=== PATIENT | female | born 1940 | race Caucasian/White ===

== ENCOUNTER 2020-03-08 19:03 | Inpatient (IN) | payer OTHER ==
[~2020-03-08] VITALS: Ht 162.6 cm; Wt 122.6 kg
[2020-03-08 19:55] LABS: Basophils # (auto) 0 10 ^3/uL (0-0.2); Basophils % (auto) 0.2 % (0.0-2.0); Eosinophils # (auto) 0 10 ^3/uL (0-0.8); Eosinophils % (auto) 0.1 % (0.0-7.0); Hematocrit 49.4 % (36.0-46.0); Hemoglobin 16.3 g/dL (12.2-16.2); Lymphocytes # (auto) 0.5 10 ^3/uL (0.4-5.4); Lymphocytes % (auto) 3.6 % (10.0-50.0); Mean Corpuscular Hemoglobin 31.2 pg (28.0-32.0); Mean Corpuscular Volume 94.3 fL (80.0-100.0); Monocytes # (auto) 0.9 10 ^3/uL (0-1.3); Monocytes % (auto) 7.2 % (0.0-12.0); Neutrophils # (auto) 11.4 10 ^3/uL (1.6-8.6); Neutrophils % (auto) 88.9 % (37.0-80.0); Platelet Count (auto) 229 10^3/uL (140-450); Red Blood Cells 5.24 10^6/uL (4.0-5.20); Red Cell Distribution Width 15.7 % (11.8-14.3); White Blood Cell 12.9 10^3/uL (4.4-10.8)
[2020-03-08] MEDS ORDERED: SODIUM CHLORIDE 0.9% 1,000 ML IV ONE (20:00)
[2020-03-08 20:09] LABS: Albumin 3.4 g/dL (3.4-5.0); Anion Gap 7 (5-15); BUN/Creatinine Ratio 13.7; Blood Urea Nitrogen 14 mg/dL (7-18); Calcium 8.1 mg/dL (8.5-10.1); Carbon Dioxide 26 mmol/L (21-32); Chloride 107 mmol/L (98-107); GFR African American 67 mL/min; GFR Non-African American 56 mL/min; Glucose 143 mg/dL (74-106); Potassium 3.7 mmol/L (3.5-5.1); Sodium 140 mmol/L (136-145)
[2020-03-08 20:14] LABS: Alanine Aminotransferase 113 U/L (13-56); Alkaline Phosphatase 179 U/L (45-117); Aspartate Aminotransferase 124 U/L (15-37); Bilirubin, Total 1.6 mg/dL (0.2-1.0); Total Protein 7.4 g/dL (6.4-8.2)
[2020-03-08] MEDS ORDERED: ASPirin 81 mg TAB PO ONE (20:15)
[2020-03-08] MEDS ORDERED: MORPHINE SULF INJ 2 MG/ML SYRINGE 1ML IV ONE (20:45)
[2020-03-08] MEDS ORDERED: ONDANSETRON HCL 4 MG/2 ML VIAL IV ONE (20:45)
[2020-03-08 20:48] LABS: INR 0.99 (0.9-1.15); Partial Thromboplastin Time 34.9 sec (23.64-32.05)
[2020-03-08] MEDS ORDERED: ONDANSETRON HCL 4 MG/2 ML VIAL IV PRN (21:45)
[2020-03-08] MEDS ORDERED: METOPROLOL TARTRATE 1MG/1ML-5ML VIAL IV PRN (21:45)
[2020-03-08] MEDS ORDERED: DEXTROSE (50%) 50ML SYRG IV PRN (21:45)
[2020-03-08] MEDS ORDERED: NITROGLYCERIN 0.4 MG SL TAB SL PRN (21:45)
[2020-03-08] MEDS ORDERED: MORPHINE SULF INJ 2 MG/ML SYRINGE 1ML IV PRN (21:45)
[2020-03-08] MEDS: CARVEDILOL 3.125 MG TAB PO SCH (22:00)
[2020-03-08] MEDS ORDERED: ENOXAPARIN SOD 100 MG/1 ML SYRINGE SC SCH (22:00)
[2020-03-08] MEDS: ATORVASTATIN 20 MG TAB PO SCH (22:39)
[2020-03-08] MEDS: cefTRIAXone 1GM/50ML D5W 50 ML IV SCH (22:40)
[2020-03-09] MEDS: metroNIDAZOLE 500MG/100ML 100 ML IV SCH ×4 (00:51→18:29)
[2020-03-09] MEDS ORDERED: SODIUM CHLORIDE 0.9% 1,000 ML IV ONE (01:15)
[2020-03-09] MEDS: ACCU-CHEK COMFORT CURVE STRIP VI SCH ×6 (04:00→20:00)
[2020-03-09] MEDS: InsuLIN REG 1unit/0.01ml Soln (100units/ml) SC SCH ×6 (04:00→20:00)
[2020-03-09 06:38] LABS: Basophils # (auto) 0 10 ^3/uL (0-0.2); Basophils % (auto) 0.3 % (0.0-2.0); Eosinophils # (auto) 0 10 ^3/uL (0-0.8); Eosinophils % (auto) 0.2 % (0.0-7.0); Hematocrit 38.9 % (36.0-46.0); Hemoglobin 13.1 g/dL (12.2-16.2); Lymphocytes # (auto) 0.5 10 ^3/uL (0.4-5.4); Lymphocytes % (auto) 5.5 % (10.0-50.0); Mean Corpuscular Hemoglobin 31.9 pg (28.0-32.0); Mean Corpuscular Hgb Conc. 33.7 g/dL (32.0-36.0); Mean Corpuscular Volume 94.7 fL (80.0-100.0); Monocytes # (auto) 0.9 10 ^3/uL (0-1.3); Monocytes % (auto) 10.3 % (0.0-12.0); Neutrophils # (auto) 7.7 10 ^3/uL (1.6-8.6); Neutrophils % (auto) 83.7 % (37.0-80.0); Platelet Count (auto) 170 10^3/uL (140-450); Red Blood Cells 4.11 10^6/uL (4.0-5.20); Red Cell Distribution Width 15.5 % (11.8-14.3); White Blood Cell 9.2 10^3/uL (4.4-10.8)
[2020-03-09 06:54] LABS: BUN/Creatinine Ratio 19.5; Potassium 3.7 mmol/L (3.5-5.1)
[2020-03-09 09:00] VITALS: BP 129/66
--- NOTE | 2020-03-09 09:10 | NUR ---
Telemetry admit from ER JONAS MERAZ admitted to Telemetry unit after SBAR received. Patient oriented to primary RN, unit, room, bed, and unit policies regarding patient care and visiting hours. Patient now on continuous telemetry monitoring, tele box # [id number] and telemetry reading on arrival to unit is SR. Patient placed on bedside oxygen, weighed by bedscale and encouraged to call if they need something. All questions and concerns addressed, patient verbalized understanding.
[2020-03-09] MEDS: CLOPIDOGREL BISULFATE 75 MG TAB PO SCH (10:00)
[2020-03-09] MEDS: DOCUSATE SOD 100 MG CAP PO SCH (10:00)
[2020-03-09] MEDS: ENOXAPARIN SOD 100 MG/1 ML SYRINGE SC SCH ×2 (10:00→22:54)
[2020-03-09] MEDS: LISINOPRIL 10 MG TAB PO SCH (10:17)
[2020-03-09] MEDS: ASPirin 81 mg TAB PO SCH (10:17)
[2020-03-09] MEDS: cefTRIAXone 1GM/50ML D5W 50 ML IV SCH (10:18)
[2020-03-09] MEDS: CARVEDILOL 3.125 MG TAB PO SCH ×2 (10:18→22:00)
[2020-03-09 10:40] VITALS: BP 129/66
[2020-03-09] MEDS ORDERED: METOPROLOL TARTRATE 25 MG TAB PO ONE ×2 (11:30→17:45)
[2020-03-09] MEDS ORDERED: IOHEXOL 350 MG/ML 100ML IJ ONE (12:24)
[2020-03-09 13:00] VITALS: BP 91/54
[2020-03-09] MEDS ORDERED: CITA-36 PO (16:45)
[2020-03-09] MEDS ORDERED: ATOR80TA PO (16:45)
[2020-03-09] MEDS ORDERED: LISI-646 PO (16:45)
--- NOTE | 2020-03-09 16:50 | NUR ---
Decreased heart rate Received call from [place] regarding patient's decreased heart rate in the 40's. Now at 48. Patient checked, she is asleep and asymptomatic.
[2020-03-09 17:00] VITALS: BP 129/62
--- NOTE | 2020-03-09 17:28 | NUR ---
Run of V-Fib Phone call received from [place] regarding patient's run of V-Fib. Automotive Electrician (Annel Mcguire) paged and orders received. She was notified on patient's decreased heart rate previously but now 73. Telephone order to administer the metoprolol which was previously held due to decreased HR.
[2020-03-09] MEDS ORDERED: AMIODARONE HCL 200 MG TAB PO ONE (17:45)
--- NOTE | 2020-03-09 19:10 | NUR ---
Opening Shift Note Assumed care of patient, awake, alert and oriented x4, on 2L of oxygen via NC with even and unlabored respirations, no S/S of distress/SOB or pain. Patient able to turn independently, bed in lowest locked position, side rails up x2, and call light within reach. Instructed on POC and to call for assist PRN, will continue to monitor for changes Q1hr and PRN.
[2020-03-09 22:00] VITALS: BP 124/61
[2020-03-09] MEDS: METOPROLOL TARTRATE 25 MG TAB PO SCH (22:00)
[2020-03-09] MEDS: MAGNESIUM OXIDE 400 MG TAB PO SCH (22:53)
[2020-03-09] MEDS: AMIODARONE HCL 200 MG TAB PO SCH (22:53)
[2020-03-09] MEDS: ATORVASTATIN 20 MG TAB PO SCH (22:53)
[2020-03-10] MEDS: metroNIDAZOLE 500MG/100ML 100 ML IV SCH ×4 (00:35→17:41)
[2020-03-10] MEDS: ACCU-CHEK COMFORT CURVE STRIP VI SCH ×6 (04:00→20:00)
[2020-03-10] MEDS: InsuLIN REG 1unit/0.01ml Soln (100units/ml) SC SCH ×6 (04:00→20:00)
[2020-03-10 05:30] VITALS: BP 134/71
[2020-03-10 06:09] LABS: Basophils # (auto) 0.1 10 ^3/uL (0-0.2); Basophils % (auto) 0.8 % (0.0-2.0); Eosinophils # (auto) 0.2 10 ^3/uL (0-0.8); Eosinophils % (auto) 2.4 % (0.0-7.0); Hematocrit 38.3 % (36.0-46.0); Hemoglobin 12.6 g/dL (12.2-16.2); Lymphocytes % (auto) 15.7 % (10.0-50.0); Mean Corpuscular Hemoglobin 31.6 pg (28.0-32.0); Mean Corpuscular Hgb Conc. 32.9 g/dL (32.0-36.0); Mean Corpuscular Volume 96.1 fL (80.0-100.0); Monocytes # (auto) 0.9 10 ^3/uL (0-1.3); Monocytes % (auto) 13.8 % (0.0-12.0); Neutrophils # (auto) 4.2 10 ^3/uL (1.6-8.6); Neutrophils % (auto) 67.3 % (37.0-80.0); Nucleated Red Blood Cells % 0.1 %; Platelet Count (auto) 166 10^3/uL (140-450); Red Blood Cells 3.98 10^6/uL (4.0-5.20); Red Cell Distribution Width 15.5 % (11.8-14.3); White Blood Cell 6.3 10^3/uL (4.4-10.8)
[2020-03-10 06:20] LABS: Albumin 2.4 g/dL (3.4-5.0); Calcium 7.5 mg/dL (8.5-10.1); Magnesium 2.4 mg/dL (1.6-2.6); Potassium 3.6 mmol/L (3.5-5.1)
[2020-03-10 06:23] LABS: BUN/Creatinine Ratio 21.4; Bilirubin, Total 0.7 mg/dL (0.2-1.0); Total Protein 5.9 g/dL (6.4-8.2)
--- NOTE | 2020-03-10 07:45 | NUR ---
Opening Shift Note Assumed care of patient, asleep but easily aroused. No S/S of distress/SOB or pain. Will follow up with instructions on POC and to call for assist PRN, will continue to monitor for changes Q1hr and PRN.
[2020-03-10 08:00] VITALS: BP 128/75
[2020-03-10] MEDS ORDERED: ADENOSINE 109 MG in GIVE UN-DILUTED 0 ML IV STA (08:01)
--- NOTE | 2020-03-10 09:00 | NUR ---
Off Unit for stress test
[2020-03-10 09:15] VITALS: BP 153/73
[2020-03-10] MEDS: CLOPIDOGREL BISULFATE 75 MG TAB PO SCH (10:00)
[2020-03-10] MEDS: DOCUSATE SOD 100 MG CAP PO SCH (10:00)
[2020-03-10] MEDS: CARVEDILOL 3.125 MG TAB PO SCH (10:00)
[2020-03-10] MEDS: METOPROLOL TARTRATE 25 MG TAB PO SCH ×2 (10:00→21:43)
--- NOTE | 2020-03-10 10:25 | NUR ---
On Unit Patient returned to unit after having stress test done. Will follow up with result.
[2020-03-10] MEDS: cefTRIAXone 1GM/50ML D5W 50 ML IV SCH (10:47)
[2020-03-10] MEDS: ENOXAPARIN SOD 100 MG/1 ML SYRINGE SC SCH ×2 (10:47→21:44)
[2020-03-10] MEDS: ASPirin 81 mg TAB PO SCH (10:48)
[2020-03-10] MEDS: MAGNESIUM OXIDE 400 MG TAB PO SCH ×2 (10:48→21:44)
[2020-03-10] MEDS: AMIODARONE HCL 200 MG TAB PO SCH (10:53)
[2020-03-10] MEDS: LISINOPRIL 10 MG TAB PO SCH (10:55)
[2020-03-10 12:00] VITALS: BP 148/74
--- NOTE | 2020-03-10 16:05 | NUR ---
Cardiology Rounded Annel Mcguire on unit to see patient. Stated her stress test is positive. Will notify JAREN FERNANDO.
--- NOTE | 2020-03-10 16:10 | NUR ---
Paged Dr. Tafoya regarding patient's positive stress test.
--- NOTE | 2020-03-10 16:25 | NUR ---
GI Consult Dr. Tafoya returned call, he is aware of stress test result. ERCP is cancelled for 03/11. remote encoding operations supervisor and charge nurse was notified. remote encoding operations supervisor to notify OR staff. Patient is also aware.
[2020-03-10 16:59] VITALS: BP 124/71
[2020-03-10] MEDS: ATORVASTATIN 20 MG TAB PO SCH (21:43)
[2020-03-10 22:00] VITALS: BP 136/81
[2020-03-11] MEDS: ACCU-CHEK COMFORT CURVE STRIP VI SCH ×7 (04:00→22:53)
[2020-03-11] MEDS: InsuLIN REG 1unit/0.01ml Soln (100units/ml) SC SCH ×7 (04:00→22:53)
[2020-03-11 05:43] VITALS: BP 153/72
[2020-03-11] MEDS: metroNIDAZOLE 500MG/100ML 100 ML IV SCH ×5 (06:00→23:38)
[2020-03-11 06:16] LABS: Basophils # (auto) 0.1 10 ^3/uL (0-0.2); Eosinophils # (auto) 0.2 10 ^3/uL (0-0.8); Eosinophils % (auto) 3.1 % (0.0-7.0); Hemoglobin 13.1 g/dL (12.2-16.2); Lymphocytes % (auto) 18.8 % (10.0-50.0); Mean Corpuscular Hemoglobin 31.4 pg (28.0-32.0); Mean Corpuscular Hgb Conc. 32.8 g/dL (32.0-36.0); Mean Corpuscular Volume 95.9 fL (80.0-100.0); Monocytes # (auto) 0.6 10 ^3/uL (0-1.3); Neutrophils # (auto) 3.5 10 ^3/uL (1.6-8.6); Neutrophils % (auto) 65.1 % (37.0-80.0); Platelet Count (auto) 180 10^3/uL (140-450); Red Blood Cells 4.18 10^6/uL (4.0-5.20); Red Cell Distribution Width 15.3 % (11.8-14.3); White Blood Cell 5.3 10^3/uL (4.4-10.8)
[2020-03-11 06:31] LABS: INR 1.05 (0.9-1.15); Partial Thromboplastin Time 65.8 sec (23.64-32.05)
[2020-03-11 06:36] LABS: Albumin 2.7 g/dL (3.4-5.0); Magnesium 2.6 mg/dL (1.6-2.6); Potassium 3.7 mmol/L (3.5-5.1)
[2020-03-11 06:40] LABS: BUN/Creatinine Ratio 15.3; Bilirubin, Total 0.7 mg/dL (0.2-1.0); Total Protein 6.7 g/dL (6.4-8.2)
[2020-03-11 09:00] VITALS: BP 152/78
[2020-03-11] MEDS: cefTRIAXone 1GM/50ML D5W 50 ML IV SCH (09:26)
[2020-03-11] MEDS: DOCUSATE SOD 100 MG CAP PO SCH (09:26)
[2020-03-11] MEDS: ASPirin 81 mg TAB PO SCH (09:26)
[2020-03-11] MEDS: METOPROLOL TARTRATE 25 MG TAB PO SCH ×2 (09:27→16:15)
[2020-03-11] MEDS: MAGNESIUM OXIDE 400 MG TAB PO SCH ×2 (09:27→21:31)
[2020-03-11] MEDS: CLOPIDOGREL BISULFATE 75 MG TAB PO SCH (09:28)
[2020-03-11] MEDS: ENOXAPARIN SOD 100 MG/1 ML SYRINGE SC SCH ×2 (09:28→21:26)
[2020-03-11] MEDS: LISINOPRIL 10 MG TAB PO SCH (09:28)
[2020-03-11] MEDS: AMIODARONE HCL 200 MG TAB PO SCH (09:29)
--- NOTE | 2020-03-11 09:45 | NUR ---
PATIENT IN [facility]
--- NOTE | 2020-03-11 10:15 | NUR ---
HOLD P.T. TODAY. PT WENT DOWN TO [employer].
--- NOTE | 2020-03-11 12:18 | NUR ---
Nutrition Assessment Notes please see attached link for complete assessment Est Energy needs ABW 76 [id number] kcals (20-23kcal/kgBW), Est Protein needs: 76-83 gms/day (1.0-1.1 gm/kgBW). Will continue to monitor and reassess prn. Addendum: 03/11/20 at [address] Amended: Links added.
[2020-03-11] MEDS ORDERED: ANGIOMAX 250 MG VIAL IV ONE (13:56)
[2020-03-11] MEDS ORDERED: MIDAZOLAM HCL 1MG/1ML-2 ML VIAL ONE (13:56)
[2020-03-11] MEDS ORDERED: fentaNYL CITRATE 100 MCG/2 ML VL ONE (13:56)
[2020-03-11] MEDS ORDERED: SODIUM CHL 0.9% 0 ML ONE (13:57)
[2020-03-11] MEDS ORDERED: IOHEXOL 350 MG/ML 100ML IJ ONE (13:57)
[2020-03-11] MEDS ORDERED: LIDOCAINE 2%HCL (LOCAL ANESTH.) INJ 20ML MDV ONE (13:57)
[2020-03-11] MEDS ORDERED: VERAPAMIL 2.5MG/ML INJ 2ML VIAL IV ONE (13:58)
[2020-03-11] MEDS ORDERED: HEPARIN SODIUM (PORCINE) 5000 UNITS/ML 1ML VIAL ONE (13:58)
--- NOTE | 2020-03-11 16:30 | NUR ---
removed 2 ml of air from vasc band.
--- NOTE | 2020-03-11 16:32 | NUR ---
Fernandes catheter dc'd Order to discontinue fernandes catheter. Fernandes dc'd with clean technique following deflation of balloon. Patient tolerated well with no complaints of pain. Continue care. Addendum: 03/11/20 at 1724 by Anna Whitt RN WRONG PATIENT
--- NOTE | 2020-03-11 16:45 | NUR ---
Removed 2 ml of air from vasc band.
--- NOTE | 2020-03-11 17:15 | NUR ---
Removed 2 ml of air from vasc band.
--- NOTE | 2020-03-11 17:52 | NUR ---
Removed 2 ml of air from vasc band. placed tegaderm on patient
--- NOTE | 2020-03-11 20:00 | NUR ---
Opening Shift Note Assumed care of patient, awake and alert. No S/S of distress/SOB or pain. Instructed on POC and to call for assist PRN, will continue to monitor for changes Q1hr and PRN.
[2020-03-11] MEDS: ATORVASTATIN 20 MG TAB PO SCH (21:26)
[2020-03-11] MEDS: SODIUM CHLOR 0.9% PF (SALINE LOCK) 10ML VIAL/SYR IV SCH (21:30)
--- NOTE | 2020-03-11 21:59 | NUR ---
HOSPITALIST PREETI PATIENT'S BP ELEVATED. BP 165/72. HR IS 57. PATIENT DENIES ANY PAIN AT THIS TIME AND IS ASYMPTOMATIC. PATIENT DID NOT RECEIVED DAILY DOSE IN AM. REQUESTING PRN BP MEDICATION AT THIS TIME. WILL AWAIT CALL BACK OR ORDERS. Addendum: 03/11/20 at 2206 by HAILEY MILLER RN PATIENT IS OF DOCTOR THOMAS. [facility] OFFICE CONTACTED. VOICEMAIL LEFT
[2020-03-11 22:00] VITALS: BP 165/72
[2020-03-11] MEDS ORDERED: amLODIPine BESYLATE 5 MG TAB PO ONE (22:15)
[2020-03-11] MEDS ORDERED: hydrALAZINE HCL 20 MG/ML VL IV PRN (22:15)
[2020-03-12] MEDS: InsuLIN REG 1unit/0.01ml Soln (100units/ml) SC SCH ×3 (04:00→12:00)
[2020-03-12] MEDS: ACCU-CHEK COMFORT CURVE STRIP VI SCH ×3 (04:16→12:00)
[2020-03-12] MEDS: ACETAMINOPHEN 325 MG TAB PO PRN ×3 (04:17→23:43)
[2020-03-12 05:00] VITALS: BP 153/87
[2020-03-12] MEDS: SODIUM CHLOR 0.9% PF (SALINE LOCK) 10ML VIAL/SYR IV SCH ×3 (05:39→21:21)
[2020-03-12] MEDS: metroNIDAZOLE 500MG/100ML 100 ML IV SCH ×4 (05:39→23:43)
--- NOTE | 2020-03-12 07:30 | NUR ---
Opening Shift Note Assumed care of patient, awake, alert, and oriented. No S/S of distress/SOB or pain. Bed in lowest/locked position, bed rails up x2, call light within reach. Instructed on POC and to call for assist PRN. Will continue to monitor for changes Q1hr and PRN.
[2020-03-12 07:50] LABS: Basophils # (auto) 0.1 10 ^3/uL (0-0.2); Eosinophils # (auto) 0.2 10 ^3/uL (0-0.8); Eosinophils % (auto) 2.7 % (0.0-7.0); Hematocrit 42.2 % (36.0-46.0); Hemoglobin 13.9 g/dL (12.2-16.2); Lymphocytes # (auto) 1.2 10 ^3/uL (0.4-5.4); Lymphocytes % (auto) 19.1 % (10.0-50.0); Mean Corpuscular Hemoglobin 31.4 pg (28.0-32.0); Mean Corpuscular Volume 95.1 fL (80.0-100.0); Monocytes # (auto) 0.8 10 ^3/uL (0-1.3); Monocytes % (auto) 13.2 % (0.0-12.0); Nucleated Red Blood Cells % 0.2 %; Platelet Count (auto) 190 10^3/uL (140-450); Red Blood Cells 4.44 10^6/uL (4.0-5.20); Red Cell Distribution Width 15.2 % (11.8-14.3); White Blood Cell 6.2 10^3/uL (4.4-10.8)
[2020-03-12 08:18] LABS: Albumin 2.8 g/dL (3.4-5.0); Calcium 8.4 mg/dL (8.5-10.1); Potassium 3.3 mmol/L (3.5-5.1)
[2020-03-12 08:24] LABS: BUN/Creatinine Ratio 12.3; Bilirubin, Total 0.7 mg/dL (0.2-1.0); Magnesium 2.4 mg/dL (1.6-2.6); Total Protein 6.4 g/dL (6.4-8.2)
[2020-03-12 09:00] VITALS: BP 145/76
[2020-03-12] MEDS: DOCUSATE SOD 100 MG CAP PO SCH (10:00)
[2020-03-12] MEDS: CLOPIDOGREL BISULFATE 75 MG TAB PO SCH (10:00)
[2020-03-12] MEDS: ASPirin 81 mg TAB PO SCH (10:00)
[2020-03-12] MEDS: ENOXAPARIN SOD 100 MG/1 ML SYRINGE SC SCH ×2 (10:00→21:21)
[2020-03-12] MEDS: cefTRIAXone 1GM/50ML D5W 50 ML IV SCH (10:30)
[2020-03-12] MEDS: AMIODARONE HCL 200 MG TAB PO SCH (10:31)
[2020-03-12] MEDS: METOPROLOL TARTRATE 25 MG TAB PO SCH (10:31)
[2020-03-12] MEDS: MAGNESIUM OXIDE 400 MG TAB PO SCH ×2 (10:31→21:21)
[2020-03-12] MEDS: amLODIPine BESYLATE 5 MG TAB PO SCH (10:32)
[2020-03-12] MEDS: LISINOPRIL 20 MG TAB PO SCH (10:33)
--- NOTE | 2020-03-12 10:45 | NUR ---
MD CALL RECEIVED CALL FROM DR THOMAS RE: PATIENT PROCEDURE. NO NEW ORDERS RECEIVED/WILL CONTINUE TO MONITOR
--- NOTE | 2020-03-12 10:46 | NUR ---
PAGED PAGED DR PUENTE RE:PATIENT ERCP. LEFT MESSAGE. AWAITING RETURN CALL
[2020-03-12] MEDS ORDERED: POTASSIUM CHL 20 Meq TABLET PO ONE (11:45)
[2020-03-12 13:00] VITALS: BP 138/83
--- NOTE | 2020-03-12 13:50 | NUR ---
PAIN PATIENT C/O PAIN 3/10 ACHY, HEADACHE. WILL MEDICATE PER MD ORDERS
--- NOTE | 2020-03-12 15:30 | NUR ---
MD ROUNDS DR THOMAS AT BEDSIDE DISCUSSING POC WITH PATIENT. NEW ORDERS RECEIVED/ WILL CARRY OUT. WILL CONTINUE TO MONITOR
[2020-03-12 17:00] VITALS: BP 145/82
--- NOTE | 2020-03-12 20:16 | NUR ---
IV removal IV DC'd with clean sterile technique, catheter fully intact. Pressure dressing applied to site. Patient tolerated well. Addendum: 03/13/20 at 0334 by HAILEY MILLER RN IV insertion IV access obtained, via clean sterile technique by inserting 22 gauge catheter at LEFT AC after 2 attempt(s). IV secured properly. No trauma to site. Patient tolerated well. NOTE: []
[2020-03-12] MEDS: ATORVASTATIN 20 MG TAB PO SCH (21:21)
[2020-03-12 22:00] VITALS: BP 152/85
[2020-03-13 05:07] VITALS: BP 136/73
[2020-03-13] MEDS: metroNIDAZOLE 500MG/100ML 100 ML IV SCH ×4 (05:26→23:04)
[2020-03-13] MEDS: SODIUM CHLOR 0.9% PF (SALINE LOCK) 10ML VIAL/SYR IV SCH ×3 (05:26→22:46)
[2020-03-13 06:24] LABS: Basophils # (auto) 0 10 ^3/uL (0-0.2); Basophils % (auto) 0.4 % (0.0-2.0); Eosinophils # (auto) 0.2 10 ^3/uL (0-0.8); Hemoglobin 14.4 g/dL (12.2-16.2); INR 1.08 (0.9-1.15); Lymphocytes # (auto) 1.5 10 ^3/uL (0.4-5.4); Lymphocytes % (auto) 24.2 % (10.0-50.0); Mean Corpuscular Hemoglobin 31.5 pg (28.0-32.0); Mean Corpuscular Hgb Conc. 33.4 g/dL (32.0-36.0); Mean Corpuscular Volume 94.3 fL (80.0-100.0); Monocytes # (auto) 0.8 10 ^3/uL (0-1.3); Monocytes % (auto) 13.1 % (0.0-12.0); Neutrophils # (auto) 3.7 10 ^3/uL (1.6-8.6); Neutrophils % (auto) 59.3 % (37.0-80.0); Nucleated Red Blood Cells % 0.1 %; Platelet Count (auto) 225 10^3/uL (140-450); Red Blood Cells 4.56 10^6/uL (4.0-5.20); Red Cell Distribution Width 15.6 % (11.8-14.3); White Blood Cell 6.3 10^3/uL (4.4-10.8)
[2020-03-13 06:36] LABS: Potassium 3.6 mmol/L (3.5-5.1)
[2020-03-13 06:56] LABS: Albumin 2.9 g/dL (3.4-5.0); BUN/Creatinine Ratio 14.1; Bilirubin, Direct 0.2 mg/dL (0-0.2); Bilirubin, Total 0.5 mg/dL (0.2-1.0); Calcium 8.6 mg/dL (8.5-10.1); Magnesium 2.8 mg/dL (1.6-2.6); Total Protein 6.6 g/dL (6.4-8.2)
[2020-03-13 09:00] VITALS: BP 131/80
[2020-03-13] MEDS: ASPirin 81 mg TAB PO SCH (10:00)
[2020-03-13] MEDS: LISINOPRIL 20 MG TAB PO SCH (10:00)
[2020-03-13] MEDS: amLODIPine BESYLATE 5 MG TAB PO SCH (10:00)
[2020-03-13] MEDS: MAGNESIUM OXIDE 400 MG TAB PO SCH ×2 (10:00→22:45)
[2020-03-13] MEDS: CLOPIDOGREL BISULFATE 75 MG TAB PO SCH (10:00)
[2020-03-13] MEDS: DOCUSATE SOD 100 MG CAP PO SCH (10:00)
[2020-03-13] MEDS: ENOXAPARIN SOD 100 MG/1 ML SYRINGE SC SCH ×2 (10:00→22:46)
[2020-03-13] MEDS: AMIODARONE HCL 200 MG TAB PO SCH (10:00)
[2020-03-13] MEDS: METOPROLOL TARTRATE 25 MG TAB PO SCH (10:00)
[2020-03-13] MEDS: cefTRIAXone 1GM/50ML D5W 50 ML IV SCH (10:32)
[2020-03-13 13:00] VITALS: BP 155/88
--- NOTE | 2020-03-13 13:35 | NUR ---
IV insertion IV access obtained, via clean sterile technique by inserting 22 gauge catheter at R WRIST after 1 attempt. IV secured properly. No trauma to site. Patient tolerated well. IV removal IV DC'd with clean sterile technique, catheter fully intact. Pressure dressing applied to site. Patient tolerated well.
--- NOTE | 2020-03-13 15:07 | NUR ---
OFF UNIT PATIENT TAKEN TO OR
--- NOTE | 2020-03-13 15:20 | NUR ---
BLOOD THINNERS HOLD ALL BLOOD THINNERS- PLAVIX, ASPIRIN, LOVENOX UNTIL ERCP COMPLETE
--- NOTE | 2020-03-13 15:33 | NUR ---
ON UNIT PATIENT RETURNED TO UNIT FROM OR. PER DR COOPER; PATIENT WILL RECEIVE PROCEDURE TOMORROW 03/14 AT 10:00 AM. PROCEDURE HELD DUE TO MEDICATIONS GIVEN ON 03/11. WILL CONTINUE TO MONITOR
[2020-03-13 17:00] VITALS: BP 142/94
--- NOTE | 2020-03-13 17:05 | NUR ---
MD CALL RECEIVED CALL FROM DR THOMAS RE: PATIENT ERCP WON'T BE PERFORMED Monday. WILL BE ON THE SCHEDULE FOR Monday. WILL NOTIFY PATIENT
--- NOTE | 2020-03-13 17:32 | NUR ---
REFUSED MEDICATION PATIENT REFUSING FLAGYL AT THIS TIME. PATIENT C/O ABDOMINAL PAIN. EDUCATED PATIENT ON IMPORTANCE OF FLAGYL, PATIENT VERBALIZED UNDERSTANDING. PATIENT STATED "SHE WANTS TO GIVE HER STOMACH A REST FOR 12 HOURS". WILL CONTINUE TO MONITOR
[2020-03-13 22:00] VITALS: BP 156/79
[2020-03-13] MEDS: ATORVASTATIN 20 MG TAB PO SCH (22:45)
[2020-03-14 05:00] VITALS: BP 144/77
[2020-03-14] MEDS: SODIUM CHLOR 0.9% PF (SALINE LOCK) 10ML VIAL/SYR IV SCH ×3 (06:22→21:58)
[2020-03-14] MEDS: metroNIDAZOLE 500MG/100ML 100 ML IV SCH (06:22)
[2020-03-14 08:00] VITALS: BP 118/80
[2020-03-14 09:00] VITALS: BP 118/80
[2020-03-14] MEDS: CLOPIDOGREL BISULFATE 75 MG TAB PO SCH (10:00)
[2020-03-14] MEDS: ENOXAPARIN SOD 100 MG/1 ML SYRINGE SC SCH (10:00)
[2020-03-14] MEDS: MAGNESIUM OXIDE 400 MG TAB PO SCH (10:00)
[2020-03-14] MEDS: ASPirin 81 mg TAB PO SCH (10:00)
[2020-03-14] MEDS: cefTRIAXone 1GM/50ML D5W 50 ML IV SCH (10:22)
[2020-03-14] MEDS: AMIODARONE HCL 200 MG TAB PO SCH (10:23)
[2020-03-14] MEDS: DOCUSATE SOD 100 MG CAP PO SCH (10:23)
[2020-03-14] MEDS: METOPROLOL TARTRATE 25 MG TAB PO SCH (10:24)
[2020-03-14] MEDS: LISINOPRIL 20 MG TAB PO SCH (10:27)
[2020-03-14] MEDS: amLODIPine BESYLATE 5 MG TAB PO SCH (10:27)
--- NOTE | 2020-03-14 12:00 | NUR ---
INFORMED DR. VERA OF PATIENTS MAG LEVEL OF 2.8. NEW ORDERS RECEIVED AND CARRIED OUT
[2020-03-14 13:00] VITALS: BP 144/81
[2020-03-14] MEDS: ACETAMINOPHEN 325 MG TAB PO PRN ×2 (14:57→21:59)
[2020-03-14 16:55] VITALS: BP 155/78
--- NOTE | 2020-03-14 19:30 | NUR ---
Opening Shift Note Assumed care of patient, awake and alert. No S/S of distress/SOB or pain. Instructed on POC and to call for assistance PRN, will continue to monitor for changes Q1hr and PRN. Safety precautions maintained bed is in lowest position and locked, bed rails 2x. Call light and bedside table are within reach.
[2020-03-14 21:14] VITALS: BP 132/77
[2020-03-14] MEDS: ATORVASTATIN 20 MG TAB PO SCH (21:58)
--- NOTE | 2020-03-14 21:59 | NUR ---
Back Pain Patient requested pain medication for back pain. Patient given pain medication as prescribed. Will continue to monitor.
[2020-03-15] VITALS (7 sets, daily range): BP systolic 120–141; BP diastolic 49–82
[2020-03-15 05:34] LABS: Potassium 3.8 mmol/L (3.5-5.1)
[2020-03-15 05:38] LABS: BUN/Creatinine Ratio 24.7; Calcium 8.7 mg/dL (8.5-10.1); Magnesium 2.6 mg/dL (1.6-2.6)
[2020-03-15] MEDS: SODIUM CHLOR 0.9% PF (SALINE LOCK) 10ML VIAL/SYR IV SCH ×3 (05:43→21:13)
--- NOTE | 2020-03-15 07:20 | NUR ---
End of Shift Note Endorsed care to day shift RN. No s/s of distress or SOB. Patient AOX4.
[2020-03-15] MEDS: DOCUSATE SOD 100 MG CAP PO SCH ×2 (09:45→10:00)
[2020-03-15] MEDS: AMIODARONE HCL 200 MG TAB PO SCH (09:45)
[2020-03-15] MEDS: cefTRIAXone 1GM/50ML D5W 50 ML IV SCH (09:45)
[2020-03-15] MEDS: METOPROLOL TARTRATE 25 MG TAB PO SCH (09:46)
[2020-03-15] MEDS: MAGNESIUM OXIDE 400 MG TAB PO SCH (09:46)
[2020-03-15] MEDS: LISINOPRIL 20 MG TAB PO SCH (09:47)
[2020-03-15] MEDS: amLODIPine BESYLATE 5 MG TAB PO SCH (09:47)
--- NOTE | 2020-03-15 15:53 | NUR ---
Nutrition Followup Note Wt 123.5kg Pt reports appetite is good. Pt po intake is adequate aeb pt po intake of 75-100% per RN doc. pt NPO for procedure 03/15. Est Energy needs ABW 76 [id number] kcals (20-23kcal/kgBW), Est Protein needs: 76-83 gms/day (1.0-1.1 gm/kgBW). Will continue to monitor and reassess prn. Labs: BUN 21H, GLUC 112H, Alb 2.9L BM: 2 03/14 per RN doc Skin: BS 20 low risk full details in RN WC doc. PES Decreased nutrient needs r/t adiposity aeb pt`s high BMI of 36.8 kgm2 Altered nutrition related lab values r.t current chronic medical condition aeb mod hypoalb Comments 1) refer to [facility] dietitian on DC 2) Pt diet advanced to Cardiac 2g Na, NPO for procedure 3) continue current plan of care Expected Outcomes/Goals: pt will not gain any more wt, pt po intake >75% F/u 3-5 days
[2020-03-15] MEDS: ATORVASTATIN 20 MG TAB PO SCH (21:14)
[2020-03-16 05:35] VITALS: BP 118/68
[2020-03-16] MEDS: SODIUM CHLOR 0.9% PF (SALINE LOCK) 10ML VIAL/SYR IV SCH ×3 (05:55→22:00)
--- NOTE | 2020-03-16 05:56 | NUR ---
Patient Request Change of Code Status to DNR.
[2020-03-16 06:29] LABS: Partial Thromboplastin Time 40.1 sec (23.64-32.05)
[2020-03-16 06:30] LABS: Basophils # (auto) 0.1 10 ^3/uL (0-0.2); Basophils % (auto) 0.9 % (0.0-2.0); Eosinophils # (auto) 0.2 10 ^3/uL (0-0.8); Eosinophils % (auto) 2.5 % (0.0-7.0); Hematocrit 45.1 % (36.0-46.0); Hemoglobin 14.8 g/dL (12.2-16.2); Lymphocytes # (auto) 1.7 10 ^3/uL (0.4-5.4); Lymphocytes % (auto) 22.4 % (10.0-50.0); Mean Corpuscular Hemoglobin 31.1 pg (28.0-32.0); Mean Corpuscular Hgb Conc. 32.8 g/dL (32.0-36.0); Mean Corpuscular Volume 94.7 fL (80.0-100.0); Monocytes # (auto) 0.7 10 ^3/uL (0-1.3); Monocytes % (auto) 9.5 % (0.0-12.0); Neutrophils # (auto) 4.9 10 ^3/uL (1.6-8.6); Neutrophils % (auto) 64.7 % (37.0-80.0); Nucleated Red Blood Cells % 0.1 %; Platelet Count (auto) 236 10^3/uL (140-450); Red Blood Cells 4.76 10^6/uL (4.0-5.20); Red Cell Distribution Width 15.8 % (11.8-14.3); White Blood Cell 7.6 10^3/uL (4.4-10.8)
[2020-03-16 06:31] LABS: Potassium 3.9 mmol/L (3.5-5.1)
[2020-03-16 06:46] LABS: Albumin 2.8 g/dL (3.4-5.0); BUN/Creatinine Ratio 23.9; Bilirubin, Total 0.5 mg/dL (0.2-1.0); Calcium 8.8 mg/dL (8.5-10.1); Total Protein 6.5 g/dL (6.4-8.2)
--- NOTE | 2020-03-16 07:03 | NUR ---
End of Shift Note Endorsed care to day shift RN. No s/s of distress or SOB. Patient AOX4. Patient resting in bed w/ HOB at 30 degrees, safety precautions in place, bed alarm on, bed in lowest position, and side rails up x2. Call light within reach.
[2020-03-16 08:00] VITALS: BP 120/77
[2020-03-16 09:16] VITALS: BP 140/61
[2020-03-16] MEDS ORDERED: IOHEXOL 300 MG/ML 100ML BOTTLE IJ ONE (09:39)
--- NOTE | 2020-03-16 09:51 | NUR ---
To preop fro ERCP. Consent and checklist sent with patient. A&Ox4. Respirations unlabored. Skin warm and dry. IV site clear, L hand. Gown and linens clean and dry.
[2020-03-16] MEDS: DOCUSATE SOD 100 MG CAP PO SCH (10:00)
[2020-03-16] MEDS ORDERED: SUCCINYLCHOLINE CHLORIDE 20 MG/ML 10ML VIAL IV ONE (10:01)
[2020-03-16] MEDS ORDERED: ETOMIDATE (2MG/ML) 20ML VIAL IV ONE (10:01)
[2020-03-16] MEDS ORDERED: fentaNYL CITRATE 100 MCG/2 ML VL ONE (10:10)
[2020-03-16] MEDS ORDERED: MEPERIDINE HCL (50 MG/ML) 1 ML VIAL ONE (10:11)
[2020-03-16] MEDS ORDERED: MIDAZOLAM HCL 1MG/1ML-2 ML VIAL ONE (10:11)
[2020-03-16] MEDS ORDERED: PROPOFOL 10 MG/ML 20 ML IV ONE (10:30)
[2020-03-16] MEDS ORDERED: DexAMETHasone SOD PHOS 10MG/1ML VIAL INJ ONE (10:30)
--- NOTE | 2020-03-16 10:52 | NUR ---
A&Ox4, respirations unlabored, skin warm and dry, VSS, NSR on satellite project site monitor. WCTM
[2020-03-16] MEDS: ACETAMINOPHEN 325 MG TAB PO PRN (13:18)
[2020-03-16] MEDS: MAGNESIUM OXIDE 400 MG TAB PO SCH (13:20)
[2020-03-16] MEDS: LISINOPRIL 20 MG TAB PO SCH (13:21)
[2020-03-16] MEDS: amLODIPine BESYLATE 5 MG TAB PO SCH (13:21)
[2020-03-16] MEDS: METOPROLOL TARTRATE 25 MG TAB PO SCH (13:22)
[2020-03-16] MEDS: cefTRIAXone 1GM/50ML D5W 50 ML IV SCH (13:23)
[2020-03-16] MEDS: AMIODARONE HCL 200 MG TAB PO SCH (13:32)
[2020-03-16] MEDS ORDERED: KETOROLAC TROMETH 15 mg/ml 1ML VL IV ONE (17:30)
[2020-03-16] MEDS ORDERED: KETOROLAC TROMETH 30 MG/ML 1ML VIAL IV ONE (18:00)
--- NOTE | 2020-03-16 19:20 | NUR ---
Opening Shift Note Assumed care of patient after receiving report from CHELE Ward. Patient awake and alert with n S/S of distress/SOB or pain. Call light within reach, bed in lowest position x2 side rails, HOB >30. Instructed on POC and to call for assist PRN, will continue to monitor for changes Q1hr and PRN.
[2020-03-16 22:00] VITALS: BP 125/63
[2020-03-16] MEDS: ATORVASTATIN 20 MG TAB PO SCH (22:00)
--- NOTE | 2020-03-17 04:46 | NUR ---
CHG wipes, linen change Provided patient with items to cleanse alex area, performed CHG wipes on patent. Complete linen change. Patient tolerated intervention well.
[2020-03-17 05:42] VITALS: BP 101/55
[2020-03-17] MEDS: SODIUM CHLOR 0.9% PF (SALINE LOCK) 10ML VIAL/SYR IV SCH ×3 (06:00→21:16)
[2020-03-17 06:33] LABS: Potassium 3.9 mmol/L (3.5-5.1)
[2020-03-17 06:58] LABS: Albumin 3.2 g/dL (3.4-5.0); BUN/Creatinine Ratio 22.4; Bilirubin, Total 0.8 mg/dL (0.2-1.0); Calcium 8.6 mg/dL (8.5-10.1); Total Protein 7.6 g/dL (6.4-8.2)
--- NOTE | 2020-03-17 07:45 | NUR ---
Opening Note Received report from overnight cashier RN. Patient is awake, alert and oriented x4. No signs or symptoms of distress noted at this time. Patient is on room air, respirations even and unlabored. Patient denies pain at this time. Patient is NPO for possible procedure today. Reviewed plan of care with patient, patient verbalized understanding. Bed in low and locked position, call light within reach. Will continue to monitor Q1 hour and PRN.
[2020-03-17 08:43] VITALS: BP 142/74
[2020-03-17] MEDS: MAGNESIUM OXIDE 400 MG TAB PO SCH (09:27)
[2020-03-17] MEDS: LISINOPRIL 20 MG TAB PO SCH (09:27)
[2020-03-17] MEDS: METOPROLOL TARTRATE 25 MG TAB PO SCH (09:28)
[2020-03-17] MEDS: amLODIPine BESYLATE 5 MG TAB PO SCH (09:29)
[2020-03-17] MEDS: AMIODARONE HCL 200 MG TAB PO SCH (09:29)
[2020-03-17] MEDS: cefTRIAXone 1GM/50ML D5W 50 ML IV SCH (09:33)
[2020-03-17] MEDS: DOCUSATE SOD 100 MG CAP PO SCH (09:34)
--- NOTE | 2020-03-17 11:10 | NUR ---
Surgery update Per Julia in pre-op patient is to have surgery . Patient aware of plan of care.
[2020-03-17 12:44] VITALS: BP 133/79
[2020-03-17] MEDS: D5W/SOD CHL 0.45% 1,000 ML IV SCH (13:34)
[2020-03-17 16:56] VITALS: BP 126/78
--- NOTE | 2020-03-17 19:05 | NUR ---
Closing Note Repot given to maintenance technician 2nd shift RN. No signs or symptoms of distress noted at this time.
--- NOTE | 2020-03-17 19:20 | NUR ---
Opening Shift Note Assumed care of patient after receiving report from CHELE Saenz. Patient awake and alert with no S/S of distress/SOB or pain. Breaths even and regular on NC at 3L. Call light within reach, bed in lowest position x2 side rails, HOB >30. Instructed on POC and to call for assist PRN, will continue to monitor for changes Q1hr and PRN.
--- NOTE | 2020-03-17 20:38 | NUR ---
IV DC'd, Patient refused IV medications Patient stated her IV was bothering her and wanted it removed. IV site was asymptomatic, no redness, swelling noted and IV flushed easily. Patient was educated on use and need for continuing IV access, patient currently running fluids. Patient verbalized understanding and stated "I understand that the doctor ordered for me to get the fluids but I want to refuse it all, I don't want to have this IV in anymore." IV catheter fully intact, pressure dressing applied.
--- NOTE | 2020-03-17 20:43 | NUR ---
MD notified, patient refusing IV Called and spoke with MD covering for Stanley, informed him patient was refusing having IV access and all IV medication and Patient verbalized understanding and continued to refuse. MD notified, will continue to monitor.
[2020-03-17] MEDS: ATORVASTATIN 20 MG TAB PO SCH (21:17)
[2020-03-17 22:00] VITALS: BP 139/75
--- NOTE | 2020-03-17 22:00 | NUR ---
Patient given snack Patient requested clear liquid diet. Per MD notes, advance diet as tolerated. Patient NPO for previously cancelled procedure. Patient given juice and jello, tolerated both well with no complaints of nausea or stomach distress. Given broth one hour after tolerating jello. Will continue to monitor.
[2020-03-18] MEDS: D5W/SOD CHL 0.45% 1,000 ML IV SCH (02:05)
[2020-03-18 05:00] VITALS: BP 133/74
[2020-03-18 05:49] LABS: Basophils # (auto) 0 10 ^3/uL (0-0.2); Basophils % (auto) 0.2 % (0.0-2.0); Eosinophils # (auto) 0 10 ^3/uL (0-0.8); Hemoglobin 14.5 g/dL (12.2-16.2); Lymphocytes # (auto) 1.1 10 ^3/uL (0.4-5.4); Lymphocytes % (auto) 11.2 % (10.0-50.0); Mean Corpuscular Hemoglobin 31.4 pg (28.0-32.0); Mean Corpuscular Hgb Conc. 32.9 g/dL (32.0-36.0); Mean Corpuscular Volume 95.4 fL (80.0-100.0); Monocytes # (auto) 0.7 10 ^3/uL (0-1.3); Monocytes % (auto) 7.1 % (0.0-12.0); Neutrophils # (auto) 7.9 10 ^3/uL (1.6-8.6); Neutrophils % (auto) 81.5 % (37.0-80.0); Platelet Count (auto) 260 10^3/uL (140-450); Red Blood Cells 4.61 10^6/uL (4.0-5.20); Red Cell Distribution Width 15.9 % (11.8-14.3); White Blood Cell 9.7 10^3/uL (4.4-10.8)
[2020-03-18] MEDS: SODIUM CHLOR 0.9% PF (SALINE LOCK) 10ML VIAL/SYR IV SCH (06:00)
[2020-03-18 06:35] LABS: Albumin 3.1 g/dL (3.4-5.0); BUN/Creatinine Ratio 25.6; Bilirubin, Total 0.6 mg/dL (0.2-1.0); Calcium 8.5 mg/dL (8.5-10.1); Potassium 3.8 mmol/L (3.5-5.1); Total Protein 6.9 g/dL (6.4-8.2)
--- NOTE | 2020-03-18 07:30 | NUR ---
Opening Shift Note Assumed care of patient, awake and alert. No S/S of distress/SOB or pain. Bed in lowest and locked position with side rails up x2 and call light in reach. Instructed on POC and to call for assist PRN, will continue to monitor for changes Q1hr and PRN.
--- NOTE | 2020-03-18 08:15 | NUR ---
PT REFUSING IV. RN EDUCATED PT ON THE IMPORTANCE, RISKS AND BENEFITS OF AN IV. PATIENT AWARE AND VERBALIZED UNDERSTANDING. PATIENT CONTINUES TO REFUSE IV AND STATED "I AM GOING HOME TODAY AND I AM TIRED OF BEING POKED".
[2020-03-18 09:00] VITALS: BP 141/78
[2020-03-18] MEDS: DOCUSATE SOD 100 MG CAP PO SCH (09:12)
[2020-03-18] MEDS: amLODIPine BESYLATE 5 MG TAB PO SCH (09:13)
[2020-03-18] MEDS: LISINOPRIL 20 MG TAB PO SCH (09:14)
[2020-03-18] MEDS: MAGNESIUM OXIDE 400 MG TAB PO SCH (09:14)
[2020-03-18] MEDS: METOPROLOL TARTRATE 25 MG TAB PO SCH (09:15)
[2020-03-18] MEDS: AMIODARONE HCL 200 MG TAB PO SCH (09:15)
--- NOTE | 2020-03-18 09:45 | NUR ---
PATIENT AMRoz. RN EDUCATED PATIENT ON THE RISKS AND BENEFITS OF LEAVING AGAINST MEDICAL ADVICE. PATIENT VERBALIZED UNDERSTANDING AND STATED "I DON'T REALLY NEED TO SEE THE DOCTOR TODAY AND I ONLY HAVE A CERTAIN TIME FRAME FOR SOMEONE TO PICK ME UP. I NEED TO GO HOME AND GET REDY FOR MY APPOINTMENT TOMORROW."
[2020-03-18] MEDS: cefTRIAXone 1GM/50ML D5W 50 ML IV SCH (10:00)
--- NOTE | 2020-03-18 10:00 | NUR ---
AMA Note JONAS MERAZ states they want to leave the hospital Against Medical Advice (AMA). Patient encouraged to stay for further treatment/stabilization. DR. JODY FERNANDO notified of patient's wishes. Patient advised of the risks and benefits of leaving AMA. Patient verbalized understanding. Patient encouraged to return to the ER if symptoms do not improve or worsen. PT left with no s/s of SOB or distress at this time. Pt left with all personal belongings.
[2020-03-18] MEDS ORDERED: MET25T PO (10:31)
[2020-03-18] MEDS ORDERED: ASPI81CH43 PO (10:31)
== END 2020-03-18 10:00 | disposition left against medical advice (07) | DRG 444 ==
LOC: EDBD 19:03 → ER 19:04 → TELE 19:05 → TELE-CENTR 03-09 09:22
PROVIDERS: ADMIT Hospitalist; ATTEND Internal Medicine
PROC: 4A023N7 Measurement of Cardiac Sampling and Pressure, Left Heart, Percutaneous Approach (ICD-10-PCS; 2020-03-11)
PROC: B211YZZ Fluoroscopy of Multiple Coronary Arteries using Other Contrast (ICD-10-PCS; 2020-03-11)
PROC: B215YZZ Fluoroscopy of Left Heart using Other Contrast (ICD-10-PCS; 2020-03-11)
PROC: 4A033BC Measurement of Arterial Pressure, Coronary, Percutaneous Approach (ICD-10-PCS; 2020-03-11)
PROC: 0F798ZZ Dilation of Common Bile Duct, Via Natural or Artificial Opening Endoscopic (ICD-10-PCS; 2020-03-16)
PROC: BF101ZZ Fluoroscopy of Bile Ducts using Low Osmolar Contrast (ICD-10-PCS; 2020-03-16)
PROC: 0FC98ZZ Extirpation of Matter from Common Bile Duct, Via Natural or Artificial Opening Endoscopic (ICD-10-PCS; principal; 2020-03-16 10:01)
DX: K80.60 Calculus of gallbladder and bile duct with cholecystitis, unspecified, without obstruction (principal); I21.A1 Myocardial infarction type 2; Z68.42 Body mass index [BMI] 45.0-49.9, adult; I48.20 Chronic atrial fibrillation, unspecified; I25.10 Atherosclerotic heart disease of native coronary artery without angina pectoris; E66.01 Morbid (severe) obesity due to excess calories; E78.5 Hyperlipidemia, unspecified; I11.0 Hypertensive heart disease with heart failure; R73.9 Hyperglycemia, unspecified; I48.91 Unspecified atrial fibrillation; I50.9 Heart failure, unspecified; Z53.9 Procedure and treatment not carried out, unspecified reason; Z82.49 Family history of ischemic heart disease and other diseases of the circulatory system; Z85.3 Personal history of malignant neoplasm of breast; Z85.038 Personal history of other malignant neoplasm of large intestine; Z90.10 Acquired absence of unspecified breast and nipple; Z90.49 Acquired absence of other specified parts of digestive tract; Z53.29 Procedure and treatment not carried out because of patient's decision for other reasons
CPT/HCPCS: 36415; 71045; 71275; 74018; 74176; 74181; 74328; 76000; 76705; 78452; 80048; 80053; 80061; 80076; 82150; 82962; 83690; 83735; 83880; 84443; 84484; 85025; 85379; 85610; 85730; 86850; 86900; 86901; 93005; 93017; 93306; 93458; 93571; 93970; 96361; 96372; 96374; 96375; 99152; G0378; J0153; J0330; J0696; J1100; J1885; J2250; J2405; J2704; J3490